=== PATIENT | female | born 1955 | race Caucasian/White ===

== ENCOUNTER → 2020-07-26 | Outpatient (CLI) | payer MEDICARE, BC ==
[2020-07-26 11:08] LABS: C Reactive Protein <5.0 mg/L (<10.0)
[2020-07-26 11:15] LABS: Basophils # (A) 0.1 k/uL (0-0.2); Basophils % (A) 1 %; Eosinophils # (A) 0.1 k/uL (0-0.7); Eosinophils % (A) 1 %; HCT 45.8 % (34.0-46.0); HGB 14.5 gm/dL (11.4-16.0); Lymphocytes # (A) 2.8 k/uL (1.0-4.8); Lymphocytes % (A) 32 %; MCH 31.4 pg (25.0-35.0); MCHC 31.8 g/dL (31.0-37.0); Mean Platelet Volume 7.5; Monocytes # (A) 0.5 k/uL (0-1.0); Monocytes % (A) 5 %; Neutrophils % (A) 58 %; Platelet Count 316 k/uL (150-450); RBC 4.62 m/uL (3.80-5.40); RDW 12.5 % (11.5-15.5); WBC 8.6 k/uL (3.8-10.6)
[2020-07-26 12:09] LABS: Erythrocyte Sedimentation Rate 6 mm/hr (0-20)
--- NOTE | 2020-07-26 13:48 | CT ---
EXAMINATION TYPE: CT hip RT wo con DATE OF EXAM: 07/26/2020 COMPARISON: No plain film supplied for correlation HISTORY: Right hip nonunion, broken hardware CT DLP: 422.7 mGycm Automated exposure control for dose reduction was used. Helical imaging through the right hip. Jiang l and sagittal reconstructions, three-dimensional reconstructions performed on an alternate workstati on. FINDINGS: Patient's nonunion of proximal right femoral fracture is noted with some associated sclerosis and hyp ertrophic change. There is a right femoral nichole in place. Side plate and cerclage wires are noted, add itional side screw present coursing from the femoral head, the side fixation screws at become dislodg ed and the side plate and screws are displaced from the proximal right femur. Cerclage wires are in p lace, inferior cerclage wire is stretched laterally, superior cerclage wire is discontinuous. There is no dislocation. There is a large amount of artifact due to patient's hardware. IMPRESSION: FINDINGS CONSISTENT WITH PATIENT'S HISTORY. DISLODGED ORTHOPEDIC HARDWARE, PROXIMAL RIGHT FEMORAL NON UNION.
== END | disposition home or self-care (01) ==
LOC: RADCTMAIN 09:58
PROVIDERS: ATTEND Orthopaedic Surgery Orthopaedic Trauma
DX: T84.020A Dislocation of internal right hip prosthesis, initial encounter (principal); S72.001D Fracture of unspecified part of neck of right femur, subsequent encounter for closed fracture with routine healing; M25.751 Osteophyte, right hip
CPT/HCPCS: 82306; 85025; 85652; 86140